=== PATIENT | female | born 1970 | race Hispanic/Latino ===

== ENCOUNTER 2022-03-15 11:00 | Emergency (ER) | payer OTHER ==
[~2022-03-15] VITALS: Ht 154.9 cm; Wt 85.3 kg
[2022-03-15] MEDS ORDERED: KETOROLAC TROMETHAMINE 30 MG/ML VIAL IV STA (11:36)
[2022-03-15] MEDS ORDERED: PROCHLORPERAZINE MALEATE TAB 10 MG TAB PO PRN (11:45)
[2022-03-15] MEDS ORDERED: MECLIZINE HCL 12.5 MG TAB PO ONE (11:45)
[2022-03-15] MEDS ORDERED: SODIUM CHLORIDE 0.9% 1000ML 1,000 ML IV ONE (11:45)
[2022-03-15] MEDS ORDERED: DEXAMETHASONE 10MG/ML PF INJ IV ONE (11:45)
[2022-03-15] MEDS ORDERED: DIPHENHYDRAMINE HCL 25 MG CAP PO ONE (11:45)
[2022-03-15] MEDS ORDERED: DEXAMETHASONE SOD PHOS 10 MG/1 ML VIAL IV ONE (13:18)
[2022-03-15] MEDS ORDERED: DEXAMETHASONE SOD PHOS 10 MG/1 ML VIAL ONE (13:30)
[2022-03-15] MEDS ORDERED: ONDANSETRON ODT4 MG PO (13:58)
[2022-03-15] MEDS ORDERED: FIORICET 50-301 EACH PO (13:58)
[2022-03-15] MEDS ORDERED: MECLIZINE HCL12.5 MG PO (13:58)
== END 2022-03-15 14:22 | disposition home or self-care (01) ==
LOC: ER 11:06
DX: G43.909 Migraine, unspecified, not intractable, without status migrainosus (principal); J32.9 Chronic sinusitis, unspecified; R42 Dizziness and giddiness; M32.9 Systemic lupus erythematosus, unspecified; F41.9 Anxiety disorder, unspecified
CPT/HCPCS: 0223U; 36415; 70450; 99284; J1100; J1885; J7030